=== PATIENT | female | born 1985 | race Caucasian/White ===

== ENCOUNTER 2023-04-22 08:07 | Outpatient (AMB) | payer BC, SELFPAY ==
--- NOTE | 2023-04-22 08:26 | MHC.OFFVIS ---
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 Patient reports stepping down on a dog toy causing her foot to turn inward causing her to fall on ankle. Currently pain is better today with no weight bear. States shooting pain that radiates up into her coello and calf. Her pain mostly located at that lateral aspect. Denies numbness or tingling. 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 She states she has a shooting pain in the lateral aspect of her ankle which radiates up to her coello and calf. Her pain is currently improved with no weight bearing. She denies any numbness or tingling. 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 Review of Systems Const All systems reviewed & are unremarkable except as noted in HPI and below Physical Exam Vital Signs: BMI result Body Mass Index 25.0 Const General: cooperative, healthy appearing, comfortable, no acute distress, well developed and alert Orientation/consciousness: patient oriented x3 HEENT Head: Yes normal to inspection, Yes normocephalic and Yes atraumatic Eyes General: appearance normal, both eyes and all related structures Resp Effort & Inspection: normal respiratory effort and able to speak in complete sentences Cardio Rate: regular rate Peripheral pulses: Peripheral pulses 2+ throughout GI Palpation (GI): Soft to palpation Skin Lesions: no lesions Rashes: no rashes Neuro General: patient oriented x3 Extrem Other: Right ankle: Normal to inspection with minimal swelling over the lateral malleolus with tenderness along the soft tissues.No discomfort along the posterior aspect of the ankle, no deformity along the Achilles tendon, negative Jerez?s. No pain along the syndesmosis or anterior tibia. No laxity, NVI. Results Reviewed Results Reviewed: X-rays of the right ankle obtained in the office today is negative for any acute fracture or dislocations. Assessment & Plan Assessment & Plan (1) Right ankle sprain: Code(s): S93.401A - Sprain of unspecified ligament of right ankle, initial encounter Qualifiers: Encounter type: initial encounter Involved ligament of ankle: anterior talofibular ligament Qualified Code(s): S93.491A - Sprain of other ligament of right ankle, initial encounter Plan She was placed in an off the shelf tall boot weight bearing as tolerated. I did encourage her to work on icing and elevation for the next several days. She will begin physical therapy in 2 weeks and will also transition to a lace up ankle brace at that time. She will continue to take Tylenol and Motrin as needed. I did educate her with the process of healing which is typically 6-8 weeks she could have waxing and waning of symptoms with swelling and pain. She will see us back if symptoms persist or worsens, otherwise as needed. Orders: Orders XR ankle RT min 3V Today M25.571 - Pain in right ankle and joints of right foot PT Evaluation and Treatment Today S93.401A - Sprain of unspecified ligament of right ankle, initial encounter Patient Instructions: Scribed for Lisa Clinton PA-C, by Goldy Willis medical records assistant, on 04/22/2023 at 8:45 AM EST. I, Lisa Clinton PA-C, have personally reviewed and agree with the information entered by the scribe. Coding Level of Care Code New Pt Level 3 (15903) Diagnoses Sprain of anterior talofibular ligament of right ankle, initial encounter S93.491A Encounter type: initial encounter Involved ligament of ankle: anterior talofibular ligament
[2023-04-22 08:31] VITALS: BMI 25.0
== END 2023-04-22 09:45 | disposition home or self-care (01) ==
PROVIDERS: Visit Provider Physician Assistant
DX: S93.491A Sprain of other ligament of right ankle, initial encounter (principal)
CPT/HCPCS: 99203

== ENCOUNTER 2023-04-22 08:07 | Outpatient (REF) | payer BC, SELFPAY ==
--- NOTE | ~2023-04-22 | XR_ITS ---
EXAMINATION: XR ANKLE, RIGHT CLINICAL INFORMATION: Right ankle pain COMPARISON: None available. TECHNIQUE: AP, lateral, and mortise views of the right ankle. FINDINGS: No fracture. Alignment is anatomic. No erosions. Joint spaces are maintained. Soft tissues are normal. Enthesopathy present at the Achilles tendon insertion. Small osteophytes seen arising from the cuboid dorsally XR/XR ankle RT min 3V IMPRESSION: Minimal degenerative changes as described above.
== END 2023-04-22 08:08 | disposition home or self-care (01) ==
LOC: HO.HOSX 08:07
PROVIDERS: Visit Provider Physician Assistant
DX: S93.491A Sprain of other ligament of right ankle, initial encounter (principal)
CPT/HCPCS: 73610

== ENCOUNTER 2023-12-29 12:53 | Outpatient (AMB) | payer OTHER, SELFPAY ==
--- NOTE | 2023-12-29 12:57 | MHC.OFFVIS ---
Vital Signs 12/29/23 12:57 Height 5 ft 5 in Intake Visit Reasons: multiple sebaceous cyst of scalp Intake Note: This patient presents for an assessment for multiple sebaceous cyst of the scalp. Patient c/o; x3 pilar cyst, reports soreness, reports no pain. Financial Services Representative Required: No Accompanied by: Self / Same As Patient Allergies Penicillins Allergy (Verified 12/29/23 13:04) Rash Medication List - Last Reconciled 12/29/23 by Real Morgan MD buspirone 15 mg PO BID escitalopram oxalate 5 mg PO DAILY folic acid 1 mg PO DAILY lamotrigine mg PO HPI HPI multiple sebaceous cyst of scalp: Details: 46-year-old female referred for scalp cysts. She says she has had these this before. She had some of this is excised in the past under local anesthesia There are 3 cysts that she wants excised because of discomfort. She denies any drainage. 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 of Systems Const Denies chills and Denies fever(s) Card Denies chest pain, Denies dyspnea and Denies dyspnea on exertion Resp Denies cough, Denies dyspnea and Denies dyspnea on exertion GI Denies hematochezia and Denies change in bowel habits Denies hematuria Musc Denies back pain and Denies limited range of motion Neuro Denies focal weakness and Denies convulsions Psych Denies depression and Denies mood swings Physical Exam Const General: comfortable and no acute distress Orientation/consciousness: patient oriented x3 HEENT Other: Scalp cyst, about 1 cm in diameter, on the frontal area Scalp cyst x2, about 7 mm in diameter, on the left temporal frontal area Neck Neck: Yes no lymphadenopathy Resp Auscultation: clear to auscultation bilaterally Cardio Rhythm: regular rhythm GI Palpation (GI): Soft to palpation, nontender and no guarding Neuro General: patient oriented x3 Assessment & Plan Assessment & Plan (1) Scalp cyst: Code(s): L72.9 - Follicular cyst of the skin and subcutaneous tissue, unspecified Category: Medical Plan: She has 3 scalp cysts as described above that she wants removed. I explained the technique of excision under local anesthesia. I discussed the risks including but not limited to bleeding and infections, as well as the benefits and alternatives. I reviewed with her what to expect postoperatively. She understands and wants to proceed. This will be done on her next visit as an office procedure. Coding Level of Care Code New Pt Level 3 (83181) Diagnoses Scalp cyst L72.9
== END 2023-12-29 13:24 | disposition home or self-care (01) ==
PROVIDERS: Visit Provider Surgery
DX: L72.9 Follicular cyst of the skin and subcutaneous tissue, unspecified (principal)
CPT/HCPCS: 99203

== ENCOUNTER → 2023-12-29 12:53 | Outpatient (BNVA) | payer BC, SELFPAY | PROVIDERS: Visit Provider Surgery ==

== ENCOUNTER 2024-01-12 14:52 | Outpatient (AMB) | payer OTHER, SELFPAY ==
--- NOTE | 2024-01-12 14:56 | MHC.OFFVIS ---
Vital Signs 01/12/24 15:03 Height 5 ft 5 in Intake Visit Reasons: excision multiple sebaceous cyst of scalp Intake Note: Office procedure: excision multiple sebaceous cyst of scalp. Manager Category Required: No Accompanied by: Self / Same As Patient Allergies Penicillins Allergy (Verified 01/12/24 15:03) Rash HPI HPI excision multiple sebaceous cyst of scalp: Details: She is here for removal of 3 scalp cysts. 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 Each cyst was about 1 cm in diameter. I aggregate size therefore was about 3 cm all in all. She was placed in reclining position. The area of the cyst on the right frontal area was prepped and draped. Lidocaine 1% was used for local anesthesia. I made an incision on the skin overlying the cyst using blade 15. This carried down sharply through the full-thickness of the skin until this cyst was visualized. The cyst capsule was sharply dissected with the Metzenbaum scissors from the surrounding subcutaneous layer and this was delivered. This was about a 1 cm cyst. The incision was closed with full-thickness nylon 3-0 interrupted sutures. She had 2 cysts on the left temporal area also about 1 cm in diameter. I prepped and draped both areas. Lidocaine 1% was used for local anesthesia. I made an incision on the skin overlying the 1st cyst in blade 15. This carried down through the full-thickness of the skin and subcutaneous fat until the cyst capsule was visualized. I sharply dissected the cyst capsule off of the rest of the subcutaneous layer until this was delivered and sent as specimen. I closed this incision with full-thickness nylon 3-0 interrupted sutures Another cyst was seen on the temporal area. Lidocaine 1% was used for local anesthesia. The incision was made with a blade 15. I sharply dissected the cyst capsule around the subcutaneous layer and this was delivered and sent as a specimen. This was also a 1 cm diameter cyst. This incision was closed with full-thickness nylon 3-0 interrupted sutures Bacitracin dressings were applied. The procedure was completed. She tolerated procedure well. There were no immediate complications. There was minimal blood loss. She was given wound care instructions. [id number] scalp/neck/hands/feet/genitalia 2.1cm-3cm Procedure code (CPT) selection complete Assessment & Plan Assessment & Plan (1) Scalp cyst: Code(s): L72.9 - Follicular cyst of the skin and subcutaneous tissue, unspecified Category: Medical Plan: She had multiple scalp cysts as above. There were 3 cysts each about 1 cm in diameter and aggregate size was therefore 3 cm. She was instructed on wound care. She can take Tylenol and ibuprofen for pain. She will be seen in the office for removal sutures in about 2 weeks. Coding Level of Care Code Procedure Only Diagnoses Scalp cyst L72.9 CPT Codes Scalp/Neck/Hands/Feet/Genetalia - CPT: 70853-[id number] scalp/neck/hands/feet/genitalia 2.1cm-3cm ([id number])
== END 2024-01-12 16:05 | disposition home or self-care (01) ==
PROVIDERS: Visit Provider Surgery
DX: L72.11 Pilar cyst (principal)
CPT/HCPCS: 11421

== ENCOUNTER 2024-01-12 14:52 | Outpatient (REF) | payer OTHER, SELFPAY | END 2024-01-12 14:53 | disposition home or self-care (01) | LOC: HO.LNP 14:52 | PROVIDERS: Visit Provider Surgery | DX: L72.11 Pilar cyst (principal) | CPT/HCPCS: 11421; 88304 ==

== ENCOUNTER 2024-03-13 08:03 | Outpatient (REF) | payer OTHER, SELFPAY ==
[2024-03-13 11:13] LABS: Ferritin 78 ng/mL (10-250)
[2024-03-13 11:17] LABS: Vitamin B12 473 pg/mL (200-900)
[2024-03-16 22:09] LABS: Lamotrigine Lamictal 8.7 mcg/mL (2.5-15.0)
== END 2024-03-13 08:04 | disposition home or self-care (01) ==
LOC: HO.10HDL 08:03
PROVIDERS: Visit Provider Internal Medicine
DX: G40.909 Epilepsy, unspecified, not intractable, without status epilepticus (principal); G25.81 Restless legs syndrome
CPT/HCPCS: 36415; 80175; 82607; 82728